=== PATIENT | female | born 1950 | race Caucasian/White ===

== ENCOUNTER 2017-02-17 10:04 | Inpatient (IN) | payer OTHER ==
[~2017-02-17] VITALS: Ht 157.5 cm; Wt 77.2 kg
[2017-02-17 10:51] LABS: BASOPHIL COUNT 0.1 K/uL (0-0.1); EOSINOPHIL (%) 2.3 % (0-5); EOSINOPHIL COUNT 0.2 K/uL (0-0.3); IMMATURE GRANULOCYTE (%) 0.3 % (0.0-0.7); INSTRUMENT ABS NEUTROPHIL CT 5.8 K/uL; LYMPHOCYTE COUNT 1.8 K/uL (1.0-2.8); MCH 28.6 PG (29.0-34.0); MCHC 33.3 G/DL (30.0-36.0); MEAN PLAT.VOLUME 9.3 uM^3 (9.5-12.4); MONOCYTE COUNT 0.9 K/uL (0-0.8); NEUTROPHIL (%) 66.6 % (45-76); NEUTROPHIL COUNT 5.8 K/uL (1.8-6.4); PLATELET COUNT 238 K/uL (156-360); RBC DIS.WIDTH-CV 13.6 % (11.8-14.6); RBC DIS.WIDTH-SD 42.6 % (39-53); RED BLOOD COUNT 4.65 M/uL (3.80-5.20); WHITE BLOOD COUNT 8.7 K/uL (4.1-10.2)
[2017-02-17 11:08] LABS: ANION GAP 8 MEQ/L (2-14); CHLORIDE 92 MEQ/L (99-109); POTASSIUM 4.3 MEQ/L (3.7-5.4); SAMPLE HEMOLYSIS CHECK 2; SAMPLE ICTERIC CHECK 0; SAMPLE LIPEMIA CHECK 0; SODIUM 133 MEQ/L (136-147); TOTAL BILIRUBIN 0.4 MG/DL (0.0-1.0)
[2017-02-17] MEDS ORDERED: ATORVASTATIN CA40 MG PO (11:10)
[2017-02-17] MEDS ORDERED: DALIRESP500 MCG PO (11:10)
[2017-02-17] MEDS ORDERED: ADVAIR 250/501 DISK IH (11:10)
[2017-02-17] MEDS ORDERED: HYDROCHLOROTH12.5 M3 PO (11:11)
[2017-02-17] MEDS ORDERED: IPRATROPIUM BRO15 ML BOTH NARES (11:12)
[2017-02-17] MEDS ORDERED: GLUCOPHAGE1000 MG PO (11:12)
[2017-02-17] MEDS ORDERED: SPIRIVA18 MCG IH (11:13)
[2017-02-17] MEDS ORDERED: PROAIR HFA8.5 GM IH (11:13)
[2017-02-17 11:14] LABS: ALKALINE PHOSPHATASE 93 IU/L (3-129); GFR ESTIMATE (CALCULATED) > 59 mL/min/; GLUCOSE 149 mg/dL (70-99); UREA NITROGEN (BUN) 11 mg/dL (9-23)
[2017-02-17] MEDS ORDERED: POTASSIUM-9999 MG PO (11:14)
[2017-02-17] MEDS ORDERED: TRAMADOL HCL50 MG PO (11:14)
[2017-02-17] MEDS ORDERED: MAGNESIUM400 M1 PO (11:14)
[2017-02-17] MEDS ORDERED: ALBUTEROL2.5 MG/3 M IH (11:15)
[2017-02-17 11:20] LABS: BASE EXCESS 7.6 mEq/L (-3 to +3); BICARBONATE 34.1 mEq/L (22-26); CARBOXY HGB 2.1 % (0-5); PCO2 55 mm Hg (35-45); PO2 66 mm Hg (80-100)
[2017-02-17 11:21] LABS: COMMENTS - BLOOD GASES A+C+; DEVICE NC; O2 FLOW 2 L/MIN; SITE RR; TOTAL RESP RATE 18 resp/min
[2017-02-17 11:25] LABS: TROP-I INTERPRETATION NEGATIVE; TROPONIN-I < 0.01 ng/mL (0.0-0.30)
[2017-02-17] MEDS ORDERED: ASPIRIN81 M2 PO (14:08)
[2017-02-17] MEDS ORDERED: EXCEDRIN MIGRA1 EAC3 PO (14:09)
[2017-02-17 15:42] VITALS: BP 126/67
[2017-02-17 15:54] VITALS: BP 126/67
[2017-02-17 16:48] LABS: POINT-OF-CARE METER ID UU14149397
[2017-02-17 20:20] VITALS: BP 120/54
[2017-02-17 21:28] LABS: POINT-OF-CARE METER ID UU14208753
[2017-02-17 23:45] VITALS: BP 116/55
[2017-02-18 04:42] VITALS: BP 104/52
[2017-02-18 06:29] LABS: HEMATOCRIT 34.1 % (36.0-46.0); MCH 28.8 PG (29.0-34.0); MCHC 33.7 G/DL (30.0-36.0); MCV 85.5 FL (83-99); MEAN PLAT.VOLUME 9.1 uM^3 (9.5-12.4); PLATELET COUNT 232 K/uL (156-360); RBC DIS.WIDTH-CV 13.2 % (11.8-14.6); RBC DIS.WIDTH-SD 41.1 % (39-53); RED BLOOD COUNT 3.99 M/uL (3.80-5.20); WHITE BLOOD COUNT 5.2 K/uL (4.1-10.2)
[2017-02-18 06:40] LABS: POINT-OF-CARE METER ID UU14117124
[2017-02-18 06:55] LABS: ANION GAP 7 MEQ/L (2-14); CHLORIDE 96 MEQ/L (99-109); GFR ESTIMATE (CALCULATED) > 59 mL/min/; GLUCOSE 209 mg/dL (70-99); POTASSIUM 4.3 MEQ/L (3.7-5.4); SAMPLE HEMOLYSIS CHECK 0; SAMPLE ICTERIC CHECK 0; SAMPLE LIPEMIA CHECK 0; SODIUM 136 MEQ/L (136-147); UREA NITROGEN (BUN) 14 mg/dL (9-23)
[2017-02-18 08:47] VITALS: BP 123/59
[2017-02-18 11:51] LABS: POINT-OF-CARE METER ID UU14149397
[2017-02-18 12:24] VITALS: BP 115/63
[2017-02-18 16:13] VITALS: BP 132/61
[2017-02-18 16:28] LABS: POINT-OF-CARE METER ID UU14188577
[2017-02-18 19:41] VITALS: BP 153/75
[2017-02-18 21:20] LABS: POINT-OF-CARE METER ID UU14117124
[2017-02-18 23:21] VITALS: BP 137/65
[2017-02-19] VITALS (7 sets, daily range): BP systolic 120–146; BP diastolic 57–70
[2017-02-19 06:41] LABS: POINT-OF-CARE METER ID UU14117124
[2017-02-19 07:23] LABS: GFR ESTIMATE (CALCULATED) > 59 mL/min/; UREA NITROGEN (BUN) 17 mg/dL (9-23)
[2017-02-19 11:48] LABS: POINT-OF-CARE METER ID UU14188577
[2017-02-19 17:05] LABS: POINT-OF-CARE METER ID UU14188577
[2017-02-19 21:49] LABS: POINT-OF-CARE METER ID UU14208750
[2017-02-20 03:16] VITALS: BP 111/60
[2017-02-20 06:42] LABS: POINT-OF-CARE METER ID UU14314084
[2017-02-20] MEDS ORDERED: PREDNISONE10 MG PO (11:07)
[2017-02-20] MEDS ORDERED: AUGMENTIN500 MG PO (11:07)
[2017-02-20 11:58] LABS: POINT-OF-CARE METER ID UU14314084
[2017-02-20 12:37] VITALS: BP 142/67
== END 2017-02-20 13:06 | disposition home or self-care (01) | DRG 189 ==
LOC: EME 10:04 → EDOF 13:56 → 3EAST 13:56 → ENRESERV 13:58 → EDOF 14:09 → ENRESERV 14:44 → 3EAST 15:25 → ENRESERV 02-19 18:02 → 2EASTP 02-19 20:00 → ENRESERV 02-19 20:02 → 2EASTP 02-19 20:03
PROVIDERS: Emergency Medicine; Hospitalist; Internal Medicine
DX: J96.01 Acute respiratory failure with hypoxia (principal); J96.02 Acute respiratory failure with hypercapnia; J18.9 Pneumonia, unspecified organism; J44.0 Chronic obstructive pulmonary disease with (acute) lower respiratory infection; J44.1 Chronic obstructive pulmonary disease with (acute) exacerbation; E87.4 Mixed disorder of acid-base balance; E87.1 Hypo-osmolality and hyponatremia; I10 Essential (primary) hypertension; E11.9 Type 2 diabetes mellitus without complications; E78.5 Hyperlipidemia, unspecified; F17.200 Nicotine dependence, unspecified, uncomplicated; Z99.81 Dependence on supplemental oxygen; I25.2 Old myocardial infarction; Z79.84 Long term (current) use of oral hypoglycemic drugs
CPT/HCPCS: 36600; 71010; 71020; 71275; 80048; 80053; 82565; 82803; 82948; 83605; 83880; 84484; 84520; 85025; 85027; 87040; 93005; 94640; 94640 76; 94644; 94799; 99202; 99281; 99285; J0295; J1644; J1815; J2543; J2930; J7030; J7050